=== PATIENT | female | born 1955 | race Caucasian/White ===

== ENCOUNTER 2020-01-30 13:10 | Emergency (ER) | payer OTHER, SELFPAY ==
[2020-01-30 13:44] VITALS: BP 107/54; PULSE 80; RESP 16; TEMP 36.7; O2SAT 96; BMI 47.7
--- NOTE | 2020-01-30 14:15 | ED_ITS ---
HPI - Wound/Laceration General Chief Complaint: Wound/Laceration Stated Complaint: Thumb injury Time Seen by Provider: 01/30/20 14:11 Source: patient Mode of arrival: ambulatory Limitations: no limitations History of Present Illness HPI narrative: Patient tells me she was walking her dog when she tripped and fell catching her right thumb on a rock and losing her thumb nail. Went to urgent care and sent to the ED for further evaluation. Onset (ago): hour(s) Extremity Location: right: hand Place: other (street) Patient tetanus UTD: No Context: accidental Associated symptoms: none Related Data Previous Rx's Medication Instructions Recorded cephalexin 500 mg PO TID #21 cap 01/30/20 Allergies Allergy/AdvReac Type Severity Reaction Status Date / Time No Known Allergies Allergy Verified 01/30/20 13:47 Review of Systems Review of Systems: Yes all other systems are reviewed and are negative Constitutional: Constitutional: Reports no additional constitutional co mplaints, Denies body ache(s), Denies chills, Denies fever(s), Denies headache(s) and Denies weakness Eyes: Eyes: Reports no additional eye complaints and Denies change in vision ENT: Reports system reviewed and no additional complaints, except as documented, Denies dizziness, Denies headache(s), Denies nasal congestion, Denies nasal discharge and Denies neck pain Cardiovascular: Cardiovascular: Reports no additional cardiovascular complaints, Denies chest pain, Denies leg edema and Denies dyspnea Respiratory: Respiratory: Reports no additional respiratory complaints, Denies cough and Denies dyspnea Gastrointestinal: Gastrointestinal: Reports no additional gastrointestinal complaints, Denies abdominal pain, Denies diarrhea, Denies nausea and Denies vomiting Genitourinary: Genitourinary: Reports no additional female genitourinary complaints and Denies urinary incontinence Musculoskeletal: Musculoskeletal: Reports no additional musculoskeletal complaints, Denies back pain, Denies arthralgias, Denies joint swelling, Denies neck pain, Denies numbness and Denies tingling Integumentary/Breasts: Skin/Breast: Reports system reviewed and no additional complaints, except as docu and Denies rash Neurologic: Reports system reviewed and no additional complaints, except as documented, Denies Abnormal speech present, Denies dizziness, Denies headache(s), Denies numbness, Denies tingling and Denies weakness PMF Past Medical History Attestation statement: The following information was validated with the patient. Source: obtained from family and nursing notes reviewed Medical History No known health problems Social History Social History Advance Directives: No Advance Directives Information Provided: Yes Physical Exam Vital Signs and I&O and Narrative: Vital Signs and I&O: Vital Signs Temp 98.0 F 01/30/20 13:44 Pulse 80 01/30/20 13:44 Resp 16 01/30/20 13:44 BP 107/54 L 01/30/20 13:44 Pulse Ox 96 01/30/20 13:44 Intake & Output 01/29/20 01/30/20 01/30/20 18:59 06:59 18:59 Weight 126 kg Body Mass Index 47.7 Const: General: cooperative, healthy appearing, comfortable and no acute distress Orientation/consciousness: patient oriented x3 Limitations: no limitations HENMT: Head: Yes normal to inspection Ears: hearing grossly normal bilaterally General nose exam: Normal external nose present Face and sinus: Yes normal facial exam Mouth: Normal oral and palatal mucosa present Throat: Yes posterior oropharynx normal Eyes: General: appearance normal, both eyes and all related structures Pupils: Equal, round and reactive pupils present Neck: Neck: Yes normal visual inspection Chest: Chest palpation & inspection: normal inspection of the chest Resp: Effort & Inspection: normal respiratory effort Auscultation: clear to auscultation bilaterally Cardio: Rate: regular rate Rhythm: regular rhythm Peripheral pulses: Peripheral pulses 2+ throughout GI: Inspection: Yes normal to inspection Palpation (GI): Soft to palpation and nontender Auscultation: normal bowel sounds Back/Spine/Pelvis: Thoracic/Lumbar Spine: thoracic and lumbar spine normal to inspection Skin: General skin exam: no rashes or lesions noted Neuro: General: patient oriented x3, no focal motor deficits and normal sensation to monofilament Cranial nerves: Yes Equal, round and reactive pupils present Cognition (Neuro): normal cognition Speech: No Abnormal speech present Gait exam (Neuro): Normal gait present Motor exam (neuro): 5/5 motor strength present throughout Extrem: General: Yes normal to inspection Right upper extremity: Extremity exam: right hand (absent nail from right thumb. FROM of digit ) MDM - Wound/Laceration MDM Narrative Medical decision making narrative: Complete nail avulsion of the right thumb including nail bed and root. Nail brought in by patient. Patient soaked in Betadine and Xeroform with a tube dressing was placed. Will get tetanus at her PCP tomorrow. Deferred here. Will start on prophylactic antibiotics. Discharge Plan Discharge Clinical Impression: Avulsion of nail Patient Disposition: Home, Self-Care Instructions: Nail Avulsion (ED) Additional Instructions: We have applied a topical medicated dressing called xeroform. Over this is a fitted tube dressing. Leave this on for 48 hours and do no get wet. After 48 hrs remove and wash affected area with soap and water then re-apply the medicated dressing and a loose wrap. Watch for signs of infection and return for increasing redness, fever >100.4. Call your PCP for a tetanus as discussed Prescriptions: New cephalexin 500 mg capsule 500 mg PO TID Qty: 21 RF: 0 Referrals: Physician,Unknown [Primary Care Provider] - 2 days Interventions: ED Discharge Assessment Last Done: 01/30/20 14:20 Discharge Date/Time: 01/30/20 14:21
--- NOTE | 2020-01-30 14:21 | PC.NURSE ---
pt will get tetanus at pcp office.
== END 2020-01-30 14:21 | disposition home or self-care (01) ==
PROVIDERS: Emergency Provider Internal Medicine
DX: S61.101A Unspecified open wound of right thumb with damage to nail, initial encounter (principal); W01.198A Fall on same level from slipping, tripping and stumbling with subsequent striking against other object, initial encounter; Y93.K1 Activity, walking an animal; Y92.480 Sidewalk as the place of occurrence of the external cause; Y99.9 Unspecified external cause status
CPT/HCPCS: 99283

== ENCOUNTER 2020-03-24 13:01 | Outpatient (REF) | payer OTHER, SELFPAY ==
--- NOTE | 2020-03-24 | MM_ITS ---
EXAMINATION: MM SCREENING DIGITAL BREAST TOMOSYNTHESIS, BILATERAL CLINICAL INFORMATION: Screening. Asymptomatic. The lifetime risk of breast cancer based on the Tyrer-Cuzick Model is 5%. COMPARISON: Mammography: 03/19/2019, 02/20/2018, 09/08/2016 TECHNIQUE: Digital breast tomosynthesis is performed in both the craniocaudal and mediolateral oblique views along with computer-aided detection (CAD). Synthesized 2D images are generated from the tomosynthesis. Additional left MLO view is provided. FINDINGS: There are scattered areas of fibroglandular density (ACR BI-RADS breast composition Category b). There are no significant masses, abnormal calcifications, or other abnormalities. Parenchymal pattern is similar to prior studies. The axilla and skin contours are unremarkable. MM/MM tomosynthesis screening BI IMPRESSION: No mammographic evidence of malignancy. ASSESSMENT: BI-RADS 1: Negative RECOMMENDATION: Routine annual mammography screening. This patient's information was entered into a reminder system with a target due date for their next mammogram.
== END 2020-03-24 13:02 | disposition home or self-care (01) ==
LOC: HO.MAMMO 13:01
PROVIDERS: PCP Internal Medicine; Visit Provider Internal Medicine
DX: Z12.31 Encounter for screening mammogram for malignant neoplasm of breast (principal)
CPT/HCPCS: 77063; 77067

== ENCOUNTER 2020-04-25 08:38 | Outpatient (REF) | payer OTHER, SELFPAY | END 2020-04-25 08:39 | disposition home or self-care (01) | LOC: HO.LAB 08:38 | PROVIDERS: Visit Provider Internal Medicine | DX: Z20.828 Contact with and (suspected) exposure to other viral communicable diseases (principal) | CPT/HCPCS: C9803; U0003 ==

== ENCOUNTER 2020-07-27 16:37 | Outpatient (REF) | payer OTHER, SELFPAY | END 2020-07-27 16:38 | disposition home or self-care (01) | LOC: HO.HOSX 16:37 | PROVIDERS: Visit Provider Orthopaedic Surgery | DX: Z13.89 Encounter for screening for other disorder (principal) ==

== ENCOUNTER → 2020-07-28 10:14 | Outpatient (BNVA) | payer OTHER, SELFPAY | PROVIDERS: PCP Internal Medicine; Visit Provider Orthopaedic Surgery | DX: M79.641 Pain in right hand (principal) ==

== ENCOUNTER 2021-04-05 11:31 | Outpatient (REF) | payer OTHER, SELFPAY ==
--- NOTE | ~2021-04-05 | MM_ITS ---
EXAMINATION: MM SCREENING DIGITAL BREAST TOMOSYNTHESIS, BILATERAL CLINICAL INFORMATION: Screening. Asymptomatic. The lifetime risk of breast cancer based on the Tyrer-Cuzick Model is 5%. COMPARISON: Mammography: 03/24/2020, 03/19/2019, 02/20/2018 TECHNIQUE: Digital breast tomosynthesis is performed in both the craniocaudal and mediolateral oblique views along with computer-aided detection (CAD). Synthesized 2D images are generated from the tomosynthesis. FINDINGS: There are scattered areas of fibroglandular density (ACR BI-RADS breast composition Category b). There are no significant masses, abnormal calcifications, or other abnormalities. MM/MM tomosynthesis screening BI IMPRESSION: No mammographic evidence of malignancy. ASSESSMENT: BI-RADS 1: Negative RECOMMENDATION: Routine annual mammography screening. This patient's information was entered into a reminder system with a target due date for their next mammogram.
== END 2021-04-05 11:32 | disposition home or self-care (01) ==
LOC: HO.MAMMO 11:31
PROVIDERS: Visit Provider Internal Medicine
DX: Z12.31 Encounter for screening mammogram for malignant neoplasm of breast (principal)
CPT/HCPCS: 77063; 77067

== ENCOUNTER 2022-01-17 12:56 | Day surgery (SDC) | payer OTHER, SELFPAY ==
[2022-01-12 15:13] VITALS: BMI 25.3
--- NOTE | 2022-01-14 13:15 | HO.ANESPROP2 ---
Documented by User: Nancy Prasad NP 01/14/22 13:16 HPI - Anesthesia Eval Consult details Narrative: 66yo F for Colonoscopy [facility] Active Problems Active Problems: All Active Problems (Updated 01/12/22 @ 15:16 by Layla Gan RN) Sprain of right middle finger (Acute) Past Medical History Medical History History of COVID-19 Hypothyroidism Surgical History Surgical History H/O colonoscopy History of Hx of hand surgery Previous section Social History Social History Patient Tobacco Use Status: Former Tobacco user Quit Date: >5 years Tobacco use type: Cigarette Second Hand Smoke Exposure: No Use of substances other than those prescribed or required for medical reasons: No Are you DNR?: No Advance Directives: No Advance Directives Information Provided: Yes Advance Directives on File: No Current occupational status: employed Current occupation: Insurance - Right handed Meds Allergies Allergy/AdvReac Type Severity Reaction Status Date / Time No Known Allergies Allergy Verified 07/29/20 12:55 Home Medications Medication Instructions Recorded Confirmed Last Taken Type cetirizine 10 mg tablet (Zyrtec) 10 mg PO DAILY 01/12/22 01/12/22 Unknown History levothyroxine 50 mcg tablet 50 mcg PO DAILY 01/12/22 01/12/22 Unknown History Exam Exam Date and Time: January 14, 2022 1315 Height,Weight and Vital Signs: Height 5 ft 4.5 in Weight 68.039 kg Assessment and Plan Assessment Anesthesia Assessment: Chart Reviewed Documented by User: Gary Pinzon MD 01/17/22 14:14 PMFSH Past Medical History Medical History History of COVID-19 Hypothyroidism Family History Family history of problems with anesthesia: No Surgical History Surgical History H/O colonoscopy History of Hx of hand surgery Previous section History of Problems with Anesthesia: No Social History Social History Patient Tobacco Use Status: Former Tobacco user Quit Date: >5 years Tobacco use type: Cigarette Second Hand Smoke Exposure: No Use of substances other than those prescribed or required for medical reasons: No Are you DNR?: No Advance Directives: No Advance Directives Information Provided: Yes Advance Directives on File: No Current occupational status: employed Current occupation: Insurance - Right handed Meds Allergies Allergy/AdvReac Type Severity Reaction Status Date / Time No Known Allergies Allergy Verified 07/29/20 12:55 Home Medications Medication Instructions Recorded Confirmed Last Taken Type cetirizine 10 mg tablet (Zyrtec) 10 mg PO DAILY 01/12/22 01/12/22 Unknown History levothyroxine 50 mcg tablet 50 mcg PO DAILY 01/12/22 01/12/22 Unknown History Exam Airway Mallampati Class: II TM Dist: >3cm Neck ROM: Full Loose/Missing/Broken Teeth: No (Rrr) Lungs: clear Assessment and Plan Final Anesthetic Review Family History of Problems with Anesthesia: No History of Problems with Anesthesia: No NPO: Yes ASA Class: II Final Preanesthetic Review: No Changes in Pt Med Stat, Meds/Allgs Chart Reviewed, Consent Obtained/Reviewed and Anes Risks/Benef Reviewed Patient Risk: Intermediate Procedure Risk: Low Anesthetic Plan Anesthetic Plan: MAC: Disposition: Standard PACU
[2022-01-17 13:30] VITALS: BP 99/62; PULSE 84; RESP 16; TEMP 37.2; O2SAT 97
[2022-01-17] MEDS: Lactated Ringers 1,000 ML 100 ML IVCONT (13:35)
[2022-01-17 15:25] VITALS: BP 113/67; PULSE 70; RESP 20; TEMP 36.7; O2SAT 100
--- NOTE | 2022-01-17 15:31 | P.BOP_ITS ---
Brief Operative Note Date of Service: 01/17/22 Pre-op diagnosis: Screening Post-op diagnosis: other (Colon polyps) Procedure: Colonoscopy to the cecum and TI with bx/removal of polyp, and hot snare polypectomy with placement of 1 Resolution clip on the ascending colon polypectomy site. Surgeon: Nicholas Agudelo Anesthesia: MAC Was an Tractor Operator Battery used for this Procedure?: No Estimated blood loss (mL): 2.0 Pathology: other (A. Ascending colon polyps) Condition: stable Disposition: PACU
[2022-01-17 15:40] VITALS: BP 112/60; PULSE 68; RESP 18; TEMP 36.8; O2SAT 98
--- NOTE | 2022-01-18 00:46 | OP_ITS ---
SURGEON: Nicholas Agudelo MD INDICATIONS: The patient presents for evaluation of colorectal cancer screening. Full consent has been obtained from her for this, including risks of bleeding and perforation. PREOPERATIVE DIAGNOSIS: Colorectal cancer screening. POSTOPERATIVE DIAGNOSIS: PROCEDURE PERFORMED: Colonoscopy to the cecum and terminal ileum with biopsy and removal of polyp, hot snare polypectomy, and placement of 1 resolution clip. ESTIMATED BLOOD LOSS: COMPLICATIONS: ANESTHESIA: Monitored anesthesia care. ASSISTANTS: SPECIMENS: POSTOPERATIVE DIAGNOSES: Colorectal cancer screening, colon polyps, diverticulosis, and internal hemorrhoids. DESCRIPTION OF PROCEDURE: The patient was placed in the left lateral decubitus position. The digital rectal exam revealed no abnormalities. The Olympus video pediatric colonoscope was entered into the rectum and advanced easily to the cecum. Once in the cecum, I did identify a normal-appearing cecal pouch with appendiceal orifice and a normal-appearing ileocecal valve. The terminal ileum was cannulated and appeared normal. The scope withdrawn back in the colon. The entire cecum and ileocecal valve appeared normal. The scope was slowly withdrawn assessing all mucosal surfaces carefully. Preparation was excellent. In the mid ascending colon was an approximately 4 or 5 mm flat polyp between folds that was biopsied and completely removed with a cold biopsy forceps. Just proximal to that was a flat approximately 12 mm polyp, which was removed by hot snare polypectomy in piecemeal fashion and recovered by suction. All pieces were placed in the same container as the other polyp. Post polypectomy, there did not appear to be any residual polyp nor bleeding. A single resolution clip was placed on the polypectomy site with good deployment and good hemostasis. I did not visualize any other polyps, colitis, nor angiodysplasia. There was a mild amount of sigmoid diverticulosis. In the rectum, scope was retroflexed visualizing internal hemorrhoids, but no other pathology. The rectal mucosa appeared normal. The scope was straightened and withdrawn from the patient. She tolerated the procedure well and was returned to the recovery area in stable condition. IMPRESSION: 1. Colon polyps. 2. Diverticulosis. 3. Internal hemorrhoids. PLAN: The results of the pathology will be checked. If the larger polyp is a tubular adenoma or serrated polyp, I would recommend a repeat colonoscopy in 3 years. If the larger polyp is only hyperplastic but the smaller polyp is adenomatous, I would then recommend a followup colonoscopy in 5 years. She was advised not to use any aspirin or NSAIDs for 1 week. MD YANG Reagan/MARTELL / [id number] MTDD
== END 2022-01-17 16:26 | disposition home or self-care (01) ==
PROVIDERS: PCP Physician Assistant Medical; Visit Provider Internal Medicine
PROC: 0DJD8ZZ Inspection of Lower Intestinal Tract, Via Natural or Artificial Opening Endoscopic (ICD-10-PCS; CPT 45378; principal; 2022-01-17 14:20)
DX: Z12.11 Encounter for screening for malignant neoplasm of colon (principal); D12.2 Benign neoplasm of ascending colon; K57.30 Diverticulosis of large intestine without perforation or abscess without bleeding; K64.8 Other hemorrhoids; E03.9 Hypothyroidism, unspecified; Z79.899 Other long term (current) drug therapy; Z86.16 Personal history of COVID-19
CPT/HCPCS: 45385; 45380; 88305; J2370

== ENCOUNTER 2022-01-20 10:24 | Outpatient (REF) | payer OTHER, SELFPAY ==
--- NOTE | ~2022-01-20 | MM_ITS ---
EXAMINATION: BONE DENSITOMETRY CLINICAL INDICATION: Post menopausal. COMPARISON: Previous BD dated 02/20/2018 and baseline BD dated 11/21/2013. TECHNIQUE: Using a [employer] DXA System (software version: 13.1) manufactured by [employer], dual-energy x-ray absorptiometry was performed of the lumbar spine and left hip. The images are of good technical quality. Summary results are attached. FINDINGS: AP SPINE L1-L4: Current: BMD 0.975 g/cm2, Z-score -0.2, T-score -1.7, osteopenia, 10.0% decrease from previous, 19.6% decrease from baseline (<5% change is not significant). Prior: BMD 1.083 g/cm2. Baseline: BMD 1.213 g/cm2. LEFT FEMUR, NECK: Current: BMD 0.748 g/cm2, Z-score -0.7, T-score -2.1, osteopenia. Prior: BMD 0.760 g/cm2. Baseline: BMD 0.805 g/cm2. LEFT FEMUR, TOTAL: Current: BMD 0.829 g/cm2, Z-score -0.3, T-score -1.4, osteopenia, 1.2% increase from previous, 3.2% decrease from baseline (<5% change is not significant). Prior: BMD 0.819 g/cm2. Baseline: BMD 0.856 g/cm2. IDENTIFIED RISK FACTORS: Menopause. HISTORY OF FRACTURE: None listed. MEDICATIONS: Calcium supplement and/or multivitamin. Vitamin D. MM/XR DEXA axial skeleton IMPRESSION: 1. DIAGNOSIS: Osteopenia based on the lowest T-score value of -2.1 in the femoral neck applying World Health Organization criteria. 2. 10-YEAR FRACTURE RISK PREDICTION, FRAX: Major osteoporotic fracture (clinical spine, forearm, hip or shoulder) 11.2%. Hip fracture 1.8%. 3. Treatment Recommendations: NOF guidelines recommend consideration for treatment in postmenopausal women and men age 50 and older presenting with the following: -A hip or vertebral (clinical or morphometric) fracture. -T-score less than or equal to -2.5 at the femoral neck or spine after appropriate evaluation to exclude secondary causes. -Low bone mass at the hip or spine and a 10-year fracture probability by FRAX of greater than or equal to 3% for hip fracture or greater than or equal to 20% for major osteoporotic fracture based on the [place] adapted WHO algorithm. 4. Other Recommendations: All treatment decisions require clinical judgment and consideration of individual patient factors, including patient preferences, comorbidities, previous drug use, risk factors not captured in the FRAX model (e.g. frailty, falls, vitamin D deficiency, increased bone turnover, interval significant decline in bone density) and possible under or overestimation of fracture risk by FRAX. Additional medical evaluation for secondary cause of low bone mineral density may be appropriate. FUTURE SCAN RECOMMENDATION: People with diagnosed cases of osteoporosis or at high risk for fracture should have regular bone mineral density tests. For patients eligible for Medicare, routine testing is allowed once every 2 years. The testing frequency can be increased to one year for patients who have rapidly progressing disease, those who are receiving or discontinuing medical therapy to restore bone mass, or have additional risk factors.
== END 2022-01-20 10:25 | disposition home or self-care (01) ==
LOC: HO.MAMMO 10:24
PROVIDERS: PCP Physician Assistant Medical; Visit Provider Physician Assistant Medical
DX: Z13.820 Encounter for screening for osteoporosis (principal); Z78.0 Asymptomatic menopausal state
CPT/HCPCS: 77080

== ENCOUNTER 2022-04-11 12:13 | Outpatient (REF) | payer OTHER, SELFPAY ==
--- NOTE | ~2022-04-11 | MM_ITS ---
EXAMINATION: MM SCREENING DIGITAL BREAST TOMOSYNTHESIS, BILATERAL CLINICAL INFORMATION: Screening. Asymptomatic. The lifetime risk of breast cancer based on the Tyrer-Cuzick Model is 5%. COMPARISON: Mammography: 04/05/2021, 03/24/2020, 03/19/2019 TECHNIQUE: Digital breast tomosynthesis is performed in both the craniocaudal and mediolateral oblique views along with computer-aided detection (CAD). Synthesized 2D images are generated from the tomosynthesis. FINDINGS: There are scattered areas of fibroglandular density (ACR BI-RADS breast composition Category b). There are no significant masses, abnormal calcifications, or other abnormalities. Parenchymal pattern is similar to prior studies. There is no developing density or architectural abnormality. The axilla and skin contours are unremarkable. No significant changes. MM/MM tomosynthesis screening BI IMPRESSION: No mammographic evidence of malignancy. ASSESSMENT: BI-RADS 1: Negative RECOMMENDATION: Routine annual mammography screening. This patient's information was entered into a reminder system with a target due date for their next mammogram.
== END 2022-04-11 12:14 | disposition home or self-care (01) ==
LOC: HO.MAMMO 12:13
PROVIDERS: PCP Physician Assistant Medical; Visit Provider Physician Assistant Medical
DX: Z12.31 Encounter for screening mammogram for malignant neoplasm of breast (principal)
CPT/HCPCS: 77063; 77067

== ENCOUNTER 2022-08-01 16:21 | Outpatient (REF) | payer OTHER, SELFPAY | END 2022-08-01 16:22 | disposition home or self-care (01) | LOC: HO.XRAY 16:21 | PROVIDERS: PCP Physician Assistant Medical; Visit Provider Physician Assistant Medical | DX: Z13.89 Encounter for screening for other disorder (principal) ==

== ENCOUNTER → 2023-04-19 14:45 | Outpatient (BNV) | payer OTHER, SELFPAY | PROVIDERS: PCP Physician Assistant Medical; Referring Provider Obstetrics & Gynecology; Visit Provider Radiology Diagnostic Radiology | DX: Z12.31 Encounter for screening mammogram for malignant neoplasm of breast (principal) | CPT/HCPCS: 77063; 77067 ==

== ENCOUNTER 2023-04-19 14:47 | Outpatient (REF) | payer OTHER, SELFPAY | END 2023-04-19 14:48 | disposition home or self-care (01) | LOC: HO.MAMMO 14:47 | PROVIDERS: PCP Physician Assistant Medical; Referring Provider Obstetrics & Gynecology; Visit Provider Physician Assistant Medical | DX: Z12.31 Encounter for screening mammogram for malignant neoplasm of breast (principal) | CPT/HCPCS: 77063; 77067 ==

== ENCOUNTER 2024-04-22 10:20 | Outpatient (REF) | payer BC, SELFPAY | END 2024-04-22 10:21 | disposition home or self-care (01) | LOC: HO.MAMMO 10:20 | PROVIDERS: PCP Nurse Practitioner Primary Care; Visit Provider Nurse Practitioner Primary Care | DX: Z12.31 Encounter for screening mammogram for malignant neoplasm of breast (principal) | CPT/HCPCS: 77063; 77067 ==

== ENCOUNTER → 2024-04-22 10:30 | Outpatient (BNV) | payer BC, SELFPAY | PROVIDERS: PCP Nurse Practitioner Primary Care; Visit Provider Internal Medicine | DX: Z12.31 Encounter for screening mammogram for malignant neoplasm of breast (principal) | CPT/HCPCS: 77063; 77067 ==